=== PATIENT | female | born 1980 ===

== ENCOUNTER → 2021-05-22 14:15 | Outpatient (CLI) | payer OTHER, SELFPAY ==
[2021-05-22 15:52] LABS: COVID19 -Nasal RAPID Negative (Negative)
== END ==
PROVIDERS: Visit Provider Nurse Practitioner Family
DX: Z20.822 Contact with and (suspected) exposure to COVID-19 (principal); J98.8 Other specified respiratory disorders
CPT/HCPCS: 87635